=== PATIENT | female | born 1940 | race Caucasian/White ===

== ENCOUNTER → 2017-03-16 | Outpatient (CLI) | payer OTHER ==
[~2017-03-16] MED LIST: ASPIRIN PR; CARVEDILOL12.5 MG PO; CRESTOR PO; DIOVAN HCT 3201 EACH PO; FISH OIL 1,0001 CAP PO; FISH OIL 1,001000 M1 PO; FISH OIL300 MG PO; HALFPRIN162 MG PO; HCTZ PO; LISINOPRIL PO; PRAVACHOL PO; TRILIPIX135 MG PO
--- NOTE | ~2017-03-16 | BD1 ---
[facility] A Service of [facility] RADIOLOGY TEXT RESULTS PATIENT: DOUG ASHLEY [facility] : 38 UNIT #: [id number] AGE: [address]: Gemini England MD SEX: F ORDER DR: [id number] [facility] [address] [place], [place] [address] [id number] O MR#: [id number] Acc #: [id number] NAME: DOUG ASHLEY : 1940 SEX: F STUDY DATE/TIME: 03/16/2017 10:58 UNIT: [facility] ROOM: STUDY DESCRIPTION: BD Dexa Bone Dens 1+ Site Attending Physician: Gemini England M.D. Ordering Physician: Gemini England M.D. Primary Care Physician: Mynor Ireland M.D. MEDICAL IMAGING REPORT This report is preliminary unless electronic signature is present EXAM DXA scan 03/16/2017 HISTORY Status post menopause with no hormone replacement therapy. Osteopenia. Hyperthyroidism. Fracture of rib in last 10 years. FINDINGS Bone mineral density in the lumbar spine from L1 through L4 is .817 g/cm2 which is 2.1 standard deviations below the mean when compared to the young adult reference population which is characteristic of osteopenia. This is 0.5 standard deviations above the mean when compared to the age-matched population. Compared 08/19/2014 there has been an increase in bone mineral density in the lumbar spine of 4%. Bone mineral density in the left femoral neck was 0.428 g/cm2 which is 3.8 standard deviations below the mean when compared to the young adult reference population which is characteristic of osteoporosis. This is 1.6 standard deviations below the mean when compared to the age-matched population. Compared 08/19/2014, there has been a decrease in bone mineral density in the left hip of 0.2%. IMPRESSION Bone mineral density in the lumbar spine characteristic of osteopenia with left hip characteristic of osteoporosis. Compared with 08/19/2014 there has been an increase in bone mineral density in the lumbar spine and a decrease in bone mineral density in the left hip. Dictated by... Kerwin Pascual M.D. THIS IS AN ELECTRONICALLY VERIFIED REPORT Kerwin Pascual M.D. at 03/16/2017 5:07 PM QUEENIE/steven [facility]. [facility] A Service of [facility] RADIOLOGY TEXT RESULTS PATIENT: DOUG ASHLEY LOCATION: [facility] : 38 UNIT #: [id number] AGE: [address]: Gemini England MD SEX: F ORDER DR: TD: 03/16/2017 13:45 JOB #: [id number] MEDICAL IMAGING REPORT Page 1 of 1 COPY
== END | disposition home or self-care (01) ==
LOC: CWCC 10:30
DX: M81.0 Age-related osteoporosis without current pathological fracture (principal); M85.88 Other specified disorders of bone density and structure, other site
CPT/HCPCS: 77080